=== PATIENT | female | born 1975 | race African-American/Black ===

== ENCOUNTER 2020-07-27 18:31 | Emergency (ER) | payer OTHER ==
[~2020-07-27] VITALS: Ht 182.9 cm; Wt 81.7 kg
[~2020-07-27 18:31] MED LIST: ULTRAM 50MG TAB50 MG PO
[2020-07-27] MEDS ORDERED: CELECOXIB200 MG PO (20:39)
[2020-07-27] MEDS ORDERED: ARIPIPRAZOLE5 MG PO (20:39)
[2020-07-27] MEDS ORDERED: METFORMIN HCL500 M1 PO (20:40)
[2020-07-27] MEDS ORDERED: DOK100 MG PO (20:40)
[2020-07-27] MEDS ORDERED: PROZAC20 MG PO (20:40)
[2020-07-27] MEDS ORDERED: HYDROCHLOROTHIA25 M1 PO (20:40)
[2020-07-27] MEDS ORDERED: HYDROCODON-ACE1 EAC7 PO (20:41)
[2020-07-27] MEDS ORDERED: NORCO5 PO (21:59)
[2020-07-27 22:00] VITALS: BP 145/94
[2020-07-27] MEDS ORDERED: CYCLOBENZAPRINE5 MG PO (22:04)
== END 2020-07-27 22:00 | disposition home or self-care (01) ==
LOC: ER 18:31
DX: M54.2 Cervicalgia (principal); M79.642 Pain in left hand; M79.641 Pain in right hand; M54.6 Pain in thoracic spine; M54.5 Low back pain; R51.9 Headache, unspecified; Z91.013 Allergy to seafood; Z79.899 Other long term (current) drug therapy; V49.88XA Car occupant (driver) (passenger) injured in other specified transport accidents, initial encounter; Y93.89 Activity, other specified; Y92.413 State road as the place of occurrence of the external cause; Y99.9 Unspecified external cause status

== ENCOUNTER 2021-01-14 13:37 | Emergency (ER) | payer OTHER ==
[~2021-01-14] VITALS: Ht 165.1 cm; Wt 103.4 kg
[~2021-01-14 13:37] MED LIST changes: +ARIPIPRAZOLE5 MG PO; +CELECOXIB200 MG PO; +CYCLOBENZAPRINE5 MG PO; +DOK100 MG PO; +HYDROCHLOROTHIA25 M1 PO; +HYDROCODON-ACE1 EAC7 PO; +METFORMIN HCL500 M1 PO; +NORCO5 PO; +PROZAC20 MG PO
[2021-01-14 15:46] VITALS: BP 169/100
== END 2021-01-14 15:46 | disposition home or self-care (01) ==
LOC: ER 13:37
DX: Z47.89 Encounter for other orthopedic aftercare (principal); Z98.890 Other specified postprocedural states; Z79.891 Long term (current) use of opiate analgesic; Z79.899 Other long term (current) drug therapy; Z79.84 Long term (current) use of oral hypoglycemic drugs; Z88.8 Allergy status to other drugs, medicaments and biological substances; Z91.040 Latex allergy status; Z88.5 Allergy status to narcotic agent; Z91.013 Allergy to seafood

== ENCOUNTER 2021-01-28 18:36 | Emergency (ER) | payer OTHER ==
[~2021-01-28] VITALS: Ht 167.6 cm; Wt 104.3 kg
[2021-01-28 19:02] LABS: ABSOLUTE NEUTROPHILS 2.3 thou/uL (1.4-8.2); BASOPHILS 0.4 % (0.0-2.0); EOSINOPHILS 1.6 % (0.0-3.0); HEMATOCRIT 36.4 % (37.0-47.0); HEMOGLOBIN 12.2 gm/dL (12.0-15.0); MCH 29.2 pg (26.0-34.0); MCHC 33.6 g/dL (28.0-37.0); MCV 86.9 fL (80.0-100.0); MONOCYTES 12.2 % (1.0-8.0); PLATELET COUNT 310 thou/uL (150-400); POLYS 39.8 % (36.0-66.0); RBC 4.19 mil/uL (4.20-5.00); RDW 13.8 % (10.5-14.5); WBC 5.8 thou/uL (4.0-11.0)
[2021-01-28 19:11] LABS: CALCIUM 8.3 mg/dL (8.5-10.1); CREATININE 0.6 mg/dL (0.6-1.0); POTASSIUM 3.6 mmol/L (3.5-5.1)
[2021-01-28 19:21] LABS: ALBUMIN 3.4 g/dL (3.4-5.0); TOTAL BILIRUBIN 0.4 mg/dL (0.2-1.0); TOTAL PROTEIN 7.4 g/dL (6.4-8.2)
[2021-01-28 21:33] VITALS: BP 165/116
--- NOTE | 2021-01-29 07:07 | EKG ---
[place] [address] [facility] [place] [address] ELECTROCARDIOGRAM REPORT Name: GIANNA KU Room #: [facility]#: [id number] Admission: 01/28/21 Attend Phys: Discharge: 01/28/21 Date of : 77 Report #: [id number] [facility] ED Test Date: 2021-01-28 Test Time: 18:39:32 Pat Name: GIANNA KU Department: Room: Gender: F [employer] Technician: ARMANI : 1975 Requested By: Pam Chvais Order Number: [id number] MD: Andrea Avelar Measurements Intervals [place] Rate: 90 P: 26 MD: 176 QRS: 32 QRSD: 94 T: 60 QT: 367 QTc: 449 Interpretive Statements Sinus rhythm Borderline T abnormalities, lateral leads Baseline wander in lead(s) II,III,aVF Compared to ECG 06/13/2011 15:47:06 No significant changes Electronically Signed On 01-29-2021 7:07:45 CDT by Andrea Avelar [email or web address] <ELECTRONICALLY SIGNED> By: Andrea Avelar MD, [facility] 01/29/21 [id number] Andrea Avelar MD, [facility] /EPI
== END 2021-01-28 21:43 | disposition home or self-care (01) ==
LOC: ER 18:36
PROVIDERS: Emergency Medicine
DX: J43.9 Emphysema, unspecified (principal); R07.89 Other chest pain; I10 Essential (primary) hypertension; Z79.899 Other long term (current) drug therapy; Z88.5 Allergy status to narcotic agent; Z91.040 Latex allergy status; Z91.013 Allergy to seafood